=== PATIENT | male | born 1950 | race Caucasian/White ===

== ENCOUNTER 2020-12-04 18:00 | Emergency (ER) | payer MEDICARE, OTHER ==
[~2020-12-04] VITALS: Ht 185.4 cm; Wt 120.2 kg
[2020-12-04] MEDS ORDERED: CASIRIVIMAB/IMDEVIMAB 10 ML in SODIUM CHLORIDE 0.9% 100 ML IV ONE ×2 (18:15→18:45)
== END 2020-12-04 19:26 | disposition home or self-care (01) ==
LOC: ER 18:43
DX: U07.1 COVID-19 (principal); R11.0 Nausea; M79.10 Myalgia, unspecified site; I10 Essential (primary) hypertension
CPT/HCPCS: 99283